=== PATIENT | male | born 1985 | race Caucasian/White ===

== ENCOUNTER 2020-01-08 05:14 | Emergency (ER) | payer SELFPAY ==
[~2020-01-08] VITALS: Ht 172.7 cm; Wt 79.0 kg
--- NOTE | 2020-01-08 05:37 | NUR ---
PT SITTING ON GURNEY, SHIVERING. WHEN QUESTIONED IF HE WAS COLD PT REPLIED THAT HE WAS VERY ANXIOUS, "I JUST HAVE A LOT GOING ON AND DON'T LIKE BEING HERE ALONE." FEARS ADDRESSED, BLANKET PROVIDED. CALL LIGHT IN REACH, LIGHTS OFF TO PROMOTE REST AND CALM ENVIRONMENT.
[2020-01-08] MEDS ORDERED: LORazepam 0.5MG TABLET ONE (05:44)
[2020-01-08] MEDS ORDERED: LORazepam 1MG TABLET PO ONE (06:00)
--- NOTE | 2020-01-08 06:18 | NUR ---
PT IS MORE RELAXED, TALKING WITH TECH ABOUT MARTIAL ARTS WHILE SPLINT IS BEING PLACED. WHEN ASKED PT STATES HE'S "DOING GOOD, FEELING BETTER."
[2020-01-08 06:41] LABS: ANION GAP 5 mmol/L (5-15); CALCIUM 9.4 mg/dL (8.5-10.1); CHLORIDE 110 mmol/L (98-107)
[2020-01-08] MEDS ORDERED: LISINOPRIL 20 MG TABLET PO ONE (07:00)
[2020-01-08] MEDS ORDERED: LISINOPRIL 20 MG TABLET ONE (07:04)
[2020-01-08 08:18] VITALS: BP 165/121
--- NOTE | 2020-01-08 08:23 | NUR ---
PT BP 165/121. INFORMED EDMD. OKAY FOR DISCHARGE. PT GIVEN LINSINOPRIL HOME PRESCRIPTION. PT INSTRUCTED TO FILL AND FOLLOW UP WITH PCP IN REGARDS TO BP. PT GIVEN INSTRUCTIONS ON FIBERGLASS CAST CARE AND FOLLOW UP WITH ORTHO. PT VERBALIZED UNDERSTANDING. AMBULATORY AT DISCHARGE.
== END 2020-01-08 08:26 | disposition home or self-care (01) ==
LOC: ED 06:50
DX: S62.334A Displaced fracture of neck of fourth metacarpal bone, right hand, initial encounter for closed fracture (principal); M79.89 Other specified soft tissue disorders; F41.9 Anxiety disorder, unspecified; I10 Essential (primary) hypertension; X58.XXXA Exposure to other specified factors, initial encounter; Y93.89 Activity, other specified; Y92.89 Other specified places as the place of occurrence of the external cause; Y99.8 Other external cause status
CPT/HCPCS: 29125; 36415; 80048; 93005; 99285